=== PATIENT | male | born 2000 | race Caucasian/White ===

== ENCOUNTER 2021-02-16 15:30 | Emergency (ER) | payer OTHER ==
[~2021-02-16] VITALS: Ht 170.1 cm; Wt 88.5 kg
[2021-02-16] MEDS ORDERED: AMOXICILLIN500 M3 PO (16:45)
[2021-02-16] MEDS ORDERED: NAPROSYN500 MG PO (16:50)
[2021-02-16] MEDS ORDERED: TYLENOL325 M1 PO (16:50)
[2021-02-17] MEDS ORDERED: CLINDAMYCIN HC300 MG PO (13:26)
== END 2021-02-16 16:47 | disposition home or self-care (01) ==
LOC: ED 15:30
DX: K04.7 Periapical abscess without sinus (principal); F17.200 Nicotine dependence, unspecified, uncomplicated; E66.9 Obesity, unspecified; Z86.718 Personal history of other venous thrombosis and embolism

== ENCOUNTER 2021-02-17 12:53 | Emergency (ER) | payer OTHER ==
[~2021-02-17] VITALS: Ht 170.1 cm; Wt 90.7 kg
[~2021-02-17 12:53] MED LIST: AMOXICILLIN500 M3 PO; NAPROSYN500 MG PO; TYLENOL325 M1 PO
[2021-02-17] MEDS ORDERED: CLINDAMYCIN HC300 MG PO (13:26)
== END 2021-02-17 13:50 | disposition home or self-care (01) ==
LOC: ED 12:53
DX: K04.7 Periapical abscess without sinus (principal)

== ENCOUNTER 2021-04-19 20:51 | Emergency (ER) | payer OTHER ==
[~2021-04-19] VITALS: Ht 170.1 cm; Wt 90.7 kg
[~2021-04-19 20:51] MED LIST changes: +CLINDAMYCIN HC300 MG PO
[2021-04-19 23:25] LABS: BASO # 0.1 10*3/uL (0.0-0.1); BASO % 0.9 % (0.0-1.0); EOS # 0.5 10*3/uL (0.0-0.4); EOS % 5.6 % (1.0-4.0); LYMPH # 2.1 10*3/uL (1.3-4.4); MEAN CELL VOLUME 91.2 fl (80.0-94.0); MEAN CORPUSCULAR HGB 29.6 pg (27.0-31.0); MEAN CORPUSCULAR HGB CONC 32.4 g/dl (33.0-37.0); MEAN PLATELET VOLUME 11.4 fl (9.6-12.3); MONO # 0.8 10*3/uL (0.1-1.0); MONO % 8.3 % (3.0-9.0); NEUT # 5.9 10*3/uL (2.3-7.9); NEUT % 62.7 % (47.0-73.0); PLATELET COUNT AUTOMATED 193 10*3/uL (130-400); RED BLOOD COUNT 5.37 10*6/uL (4.50-5.90); RED CELL DISTRI WIDTH 12.9 % (0-14.5); WHITE BLOOD COUNT 9.4 10*3/uL (4.8-10.8)
[2021-04-19 23:41] LABS: ALBUMIN 3.9 gm/dl (3.1-4.5); ALKALINE PHOSPHATASE 67 U/L (45-117); BUN 13 mg/dl (7-24); CHLORIDE 108 mmol/L (98-107); CREATININE 0.81 mg/dL (0.70-1.30); SGOT/AST 15 IU/L (3-35); SGPT/ALT 23 U/L (12-78); SODIUM 140 mmol/L (136-145); TOTAL PROTEIN 7.7 gm/dL (6.4-8.2)
[2021-04-20] MEDS ORDERED: PROTONIX40 MG PO (01:14)
[2021-04-20] MEDS ORDERED: XARELTO15 M1 PO (01:14)
== END 2021-04-20 01:34 | disposition home or self-care (01) ==
LOC: ED 20:51
PROVIDERS: Emergency Medicine
DX: I82.431 Acute embolism and thrombosis of right popliteal vein (principal)